=== PATIENT | male | born 1985 | race African-American/Black ===

== ENCOUNTER 2017-12-12 20:58 | Emergency (ER) | payer BC, SELFPAY ==
[2017-12-12 21:10] VITALS: BP 153/84; PULSE 65; RESP 16; TEMP 36.8; O2SAT 100; BMI 31.9
--- NOTE | 2017-12-12 21:22 | XR_ITS ---
EXAM: XR lumbar spine 2-3V HISTORY: ITS.REASON: BACK PAIN ORDERING PHYSICIAN: Harrison Moore MD PATIENT AGE: 32 years COMPARISON: 06/12/2015 FINDINGS: No fracture or dislocation evident. Mild lumbar spondylosis with degenerative disc disease at L3-L4, L4-5, and L5-S1 with endplate osteophytes posteriorly at those levels as well. There is mild anterolisthesis of L5 on S1 of 4 mm. The posterior osteophytes may be somewhat more prominent on today's exam. IMPRESSION: Degenerative disc disease from L3 to S1 with endplate osteophytes slightly more prominent
--- NOTE | 2017-12-12 22:18 | HMH.EDGENADL ---
ED Disposition Clinical Impression: Lumbar pain Disposition: Home, Self-Care Condition on Discharge: Good Instructions: DI for Low Back Pain Additional Instructions: use meds and see pcp for ubaldo reed Prescriptions: Cyclobenzaprine HCl [Flexeril 10mg tablet] 10 mg PO TID #20 tab predniSONE [Prednisone 20mg Tab] 20 mg PO DAILY #10 tab Referrals: Hanny Barcenas [Primary Care Provider] - - Critical Care Critical Care Time: No Attestation: On 12/12/17, the high probability of a clinically significant, sudden or life threatening deterioration of the following system(s) required my full and direct attention, intervention and personal management. The time I documented below is in addition to time spent performing reported procedures but includes the following listed in this critical care notation. Medical Decision Making - Medical Records Medical records reviewed: Yes: I reviewed the patient's medical records. Vital Signs: 12/12/17 21:10 Temperature 98.2 F Temperature Source Oral Pulse Rate [Right Brachial] 65 Respiratory Rate 16 Blood Pressure [Right Arm] 153/84 Blood Pressure Mean [Right Arm] 107 Blood Pressure Source [Right Arm] Automatic Cuff Blood Pressure Position [Right Arm] Supine 02 Sat by Pulse Oximetry 100 Oxygen Delivery Method Room Air - Lab Data Lab results reviewed: Yes: I reviewed the patient's lab results. Lab Results 12/12/17 22:30: WBC 6.3, RBC 5.19, Hgb 16.1, Hct 48.6, MCV 93.7, MCH 31.0, MCHC 33.0, RDW 13.3, Plt Count 282, MPV 8.6, Neut % (Auto) 38.0, Lymph % (Auto) 50.9 H, [place] % (Auto) 3.6, Eos % (Auto) 6.4, Baso % (Auto) 1.1, Neut # (Auto) 2.4, Lymph # (Auto) 3.2, [place] # (Auto) 0.2, Eos # (Auto) 0.4, Baso # (Auto) 0.1, ESR 14 Result diagrams: 12/12/17 22:30 Orders (Tests/Meds): ED MEDICATIONS Discontinued Medications Generic Name Dose Route Start Last Admin Trade Name Freq PRN Reason Stop Dose Admin Ketorolac Tromethamine 30 mg 12/12/17 21:25 12/12/17 21:32 Toradol 30mg/Ml Vial IM 12/12/17 21:26 30 mg ONCE ONE Administration ORDERS Category Date Time Status XR lumbar spine 2-3V Stat Exams 12/12/17 21:22 Taken C-Reactive Protein Stat Lab 12/12/17 22:30 Received CBC [Complete Blood Count Auto Diff] Stat Lab 12/12/17 22:30 Results CMP [Comprehensive Metabolic Panel] Stat Lab 12/12/17 22:30 Received ESR [Erythrocyte Sedimentation Rate] Stat Lab 12/12/17 22:30 Results - Radiology Data #1 Image(s): L-Spine Image Reviewed: Yes I reviewed the patient's radiology image Preliminary Findings: No Fracture Seen - Trino Inquiry Pt receiving controlled substance: No General Adult HPI - General Chief complaint: PAIN Stated complaint: back pain Time Seen by Provider: 12/12/17 22:18 Mode of Arrival: Ambulatory Source of Information: Patient, Spouse, Medical Record Limitations: No Limitations Description of Symptoms (Recalled from ER Triage Doc. by RN): LOWER BACK PAIN, PT STATES HE WOKE UP WITH BACK PAIN, WENT TO WORK AND IT GOT WORSE. PT STATES HE TOOK 500MG IBUPROFEN AROUND 16:15 - History of Present Illness HPI narrative: lower back pain w/o radiation today with no fever/rash or trauma and no sig back pain hx Onset (ago): day(s) Location: back Radiation: non-radiation Severity: moderate Quality: sharp Consistency: constant Exacerbating factors: movement Treatments prior to arrival: heat therapy - Related Data Previous Rx's Medication Instructions Recorded Cyclobenzaprine HCl [Flexeril 10mg 10 mg PO TID #20 tab 12/13/17 tablet] predniSONE [Prednisone 20mg 20 mg PO DAILY #10 tab 12/13/17 Tab] Allergies Allergy/AdvReac Type Severity Reaction Status Date / Time erythromycin base Allergy Mild NA-NAUSEA/V Verified 12/12/17 21:18 [ERYTHROMYCIN BASE] OMITING [facility] History I have reviewed the patient's past medical history: Yes - Social History Smoking Status: Current every da
--- NOTE | 2017-12-12 22:21 | ED_ITS ---
ED Disposition Clinical Impression: Lumbar pain Disposition: Home, Self-Care Condition on Discharge: Good Instructions: DI for Low Back Pain Additional Instructions: use meds and see pcp for ubaldo reed Prescriptions: Cyclobenzaprine HCl [Flexeril 10mg tablet] 10 mg PO TID #20 tab predniSONE [Prednisone 20mg Tab] 20 mg PO DAILY #10 tab Referrals: Hanny Barcenas [Primary Care Provider] - - Critical Care Critical Care Time: No Attestation: On 12/12/17, the high probability of a clinically significant, sudden or life threatening deterioration of the following system(s) required my full and direct attention, intervention and personal management. The time I documented below is in addition to time spent performing reported procedures but includes the following listed in this critical care notation. Medical Decision Making - Medical Records Medical records reviewed: Yes: I reviewed the patient's medical records. Vital Signs: 12/12/17 21:10 Temperature 98.2 F Temperature Source Oral Pulse Rate [Right Brachial] 65 Respiratory Rate 16 Blood Pressure [Right Arm] 153/84 Blood Pressure Mean [Right Arm] 107 Blood Pressure Source [Right Arm] Automatic Cuff Blood Pressure Position [Right Arm] Supine 02 Sat by Pulse Oximetry 100 Oxygen Delivery Method Room Air - Lab Data Lab results reviewed: Yes: I reviewed the patient's lab results. Lab Results 12/12/17 22:30: WBC 6.3, RBC 5.19, Hgb 16.1, Hct 48.6, MCV 93.7, MCH 31.0, MCHC 33.0, RDW 13.3, Plt Count 282, MPV 8.6, Neut % (Auto) 38.0, Lymph % (Auto) 50.9 H, [place] % (Auto) 3.6, Eos % (Auto) 6.4, Baso % (Auto) 1.1, Neut # (Auto) 2.4, Lymph # (Auto) 3.2, [place] # (Auto) 0.2, Eos # (Auto) 0.4, Baso # (Auto) 0.1, ESR 14 Result diagrams: 12/12/17 22:30 Orders (Tests/Meds): ED MEDICATIONS Discontinued Medications Generic Name Dose Route Start Last Admin Trade Name Freq PRN Reason Stop Dose Admin Ketorolac Tromethamine 30 mg 12/12/17 21:25 12/12/17 21:32 Toradol 30mg/Ml Vial IM 12/12/17 21:26 30 mg ONCE ONE Administration ORDERS Category Date Time Status XR lumbar spine 2-3V Stat Exams 12/12/17 21:22 Taken C-Reactive Protein Stat Lab 12/12/17 22:30 Received CBC [Complete Blood Count Auto Diff] Stat Lab 12/12/17 22:30 Results CMP [Comprehensive Metabolic Panel] Stat Lab 12/12/17 22:30 Received ESR [Erythrocyte Sedimentation Rate] Stat Lab 12/12/17 22:30 Results - Radiology Data #1 Image(s): L-Spine Image Reviewed: Yes I reviewed the patient's radiology image Preliminary Findings: No Fracture Seen - Trino Inquiry Pt receiving controlled substance: No General Adult HPI - General Chief complaint: PAIN Stated complaint: back pain Time Seen by Provider: 12/12/17 22:18 Mode of Arrival: Ambulatory Source of Information: Patient, Spouse, Medical Record Limitations: No Limitations Description of Symptoms (Recalled from ER Triage Doc. by RN): LOWER BACK PAIN, PT STATES HE WOKE UP WITH BACK PAIN, WENT TO WORK AND IT GOT WORSE. PT STATES HE TOOK 500MG IBUPROFEN AROUND 16:15 - History of Present Illness HPI narrative: lower back pain w/o radiation today with no fever/rash or trauma and no sig back pain hx Onset (ago): day(s) Location: back Radiation: non-radiation
[2017-12-12 22:54] LABS: Basophils # 0.1 K/mm3 (0-0.2); Basophils % 1.1 % (0.1-2.0); Eosinophils # 0.4 K/mm3 (0.0-0.4); Eosinophils % 6.4 % (0.1-12.0); Hematocrit 48.6 % (42.0-52.0); Hemoglobin 16.1 g/dL (14.1-18.0); Lymphocytes # 3.2 K/mm3 (0.7-4.5); Lymphocytes % 50.9 K/mm3 (10-50); Mean Corpuscular Volume 93.7 fl (80-94); Mean Platelet Volume 8.6 fl (7.4-10.4); Monocytes # 0.2 K/mm3 (0.1-1.0); Monocytes % 3.6 % (1.7-9.3); Neutrophils # 2.4 K/mm3 (1.8-7.8); Platelet Count 282 K/mm3 (142-424); Red Blood Count 5.19 M/mm3 (4.60-6.20); Red Cell Distribution Width 13.3 % (11.5-17.5); White Blood Count 6.3 K/mm3 (4.8-10.8)
[2017-12-12 22:58] LABS: MANUAL DIFFERENTIAL MANUAL DIFFERENTIAL (MANUAL DIFF)
[2017-12-12 23:01] LABS: Albumin Level 4.2 gm/dL (3.4-5.0); Blood Urea Nitrogen 14 mg/dL (7-18); Calcium 9.5 mg/dL (8.5-10.1); Carbon Dioxide 26 mmol/L (21.0-32.0); Chloride 103 mmol/L (98-107); Creatinine Clearance Estimated 118 mL/min (0-300); Creatinine,Serum 1.19 mg/dL (0.70-1.30); Estimated Glomerular Filt Rate 70 ml/min (>60); GFR (African American) 85 ML/MIN (>60); Glucose 98 mg/dL (74-106); Sodium 138 mmol/L (136-145)
[2017-12-12 23:58] LABS: Erythrocyte Sedimentation Rate 14 mm/hr (0-15)
[2017-12-12 23:59] LABS: C-Reactive Protein < 0.2 mg/L (0.0-0.9)
[2017-12-13 00:10] LABS: Alanine Aminotransferase 46 U/L (12-78); Alkaline Phosphatase 88 U/L (46-116); Aspartate Amino Transferase 30 U/L (15-37); Bilirubin,Total 0.2 mg/dL (0.2-1.0); Globulin 4.1 gm/dl (1.3-3.2); Total Protein,Serum 8.3 gm/dL (6.4-8.2)
[2017-12-13 00:11] LABS: Anisocytosis 1+; Eosinophils % 7 % (0-3); Lymphocytes % 59 % (10-50); Monocytes % 3 % (2-9); Neutrophils % 31 % (42-76); Platelet Estimate Normal; Total Cells Counted 100
[2017-12-13 00:14] VITALS: BP 144/94; PULSE 64; RESP 16; TEMP 36.8; O2SAT 100
== END 2017-12-13 00:16 | disposition home or self-care (01) ==
PROVIDERS: Emergency Provider Emergency Medicine; PCP Family Medicine Geriatric Medicine
DX: M54.5 Low back pain (principal); F17.210 Nicotine dependence, cigarettes, uncomplicated; Z88.1 Allergy status to other antibiotic agents
CPT/HCPCS: 72100; 80053; 85007; 85025; 85651; 86140; 96372; 99283

== ENCOUNTER → 2021-07-07 11:49 | Outpatient (CLI) | payer OTHER, SELFPAY | PROVIDERS: Visit Provider Nurse Practitioner | DX: Z20.822 Contact with and (suspected) exposure to COVID-19 (principal) | CPT/HCPCS: C9803; U0003; U0005 ==

== ENCOUNTER 2022-07-18 10:29 | Emergency (ER) | payer SELFPAY ==
[2022-07-18 10:41] VITALS: BP 117/73; PULSE 72; RESP 20; TEMP 36.6; O2SAT 100; BMI 27.3
--- NOTE | 2022-07-18 10:48 | XR_ITS ---
PROCEDURE INFORMATION: Exam: XR Right Hip Exam date and time: 07/18/2022 11:08 AM Age: 37 years old Clinical indication: Hip pain; Right hip TECHNIQUE: Imaging protocol: Radiologic exam of the Right hip. Views: 2 or 3 views hip with pelvis when performed. COMPARISON: ABDPELW CT abdomen pelvis w con 01/09/2019 12:05 AM FINDINGS: Bones/joints: No acute fracture or malalignment. Joint spaces are maintained. Soft tissues: Unremarkable. IMPRESSION: No acute fracture or malalignment.
[2022-07-18 10:50] VITALS: BP 150/109; PULSE 79; RESP 15; TEMP 36.6; O2SAT 100; BMI 27.3
--- NOTE | 2022-07-18 10:51 | EXP.UTC ---
Discharge Plan Disposition Patient Disposition: Home, Self-Care Condition: Good Prescriptions Prescriptions: New cyclobenzaprine 10 mg Tablet 10 mg PO BID PRN (Reason: Muscle Spasm) Qty: 20 0RF methylprednisolone 4 mg Tablets,Dose Pack 4 mg PO DIRECTED Qty: 21 0RF No Action amlodipine 10 MG tablet 10 mg PO DAILY cyclobenzaprine 10 MG tablet 5 mg PO TID PRN (Reason: spasm) Qty: 5 0RF naproxen 500 MG tablet 500 mg PO BID PRN (Reason: pain) Qty: 10 0RF Referrals Follow up/Referrals: Ben Sánchez MD [Staff Physician] - See instructions Radha Pulido APRN [Primary Care Provider] - See instructions Activity Restrictions/Add. Instructions Additional Instructions/Restrictions: Rest the extremity, Follow up with Dr. Sánchez (orthopedics). I put in a referral but you need to call his office and schedule an appointment. Follow up with your regular doctor. GO TO THE ER FOR ANY WORSENING SYMPTOMS Clinical Impressions Clinical Impression: Bursitis of hip, right, Acute pain of right hip Stand Alone Forms Stand Alone Forms: Work/School Release Discharge ED Provider: Osman Strange [facility] General Stated complaint: right hip pain, no known accident Mode of Arrival: Ambulatory Source of Information: Patient Limitations: No Limitations Time Seen by Provider: 07/18/22 10:51 Description of Symptoms (Recalled from Triage Doc. by RN): PT REPORTS RIGHT HIP PAIN X 4 DAYS. NO INJURY. HAS HAD THIS PAIN BEFORE, NOT BAD History of Present Illness Provider Complaint: He states that for the past 3 to 4 days he has had worsening right hip pain. He denies any injury. He has had episodes similar to this before, but they have been easy to get better with rest and ibuprofen. This time this has not worked as well. Related Data Home Medications Medication Instructions Recorded Confirmed amlodipine 10 mg tablet 10 mg PO DAILY Hypertension 10/22/19 10/22/19 Previous Rx's Medication Instructions Recorded cyclobenzaprine 10 mg tablet 5 mg PO TID PRN spasm #5 tabs 10/22/19 naproxen 500 mg tablet 500 mg PO BID PRN pain #10 tabs 10/22/19 cyclobenzaprine 10 mg tablet 10 mg PO BID PRN Muscle Spasm #20 10/09/22 tabs methylprednisolone 4 mg tablets in 4 mg PO DIRECTED #21 tabs 07/18/22 a dose pack Allergies Allergy/AdvReac Type Severity Reaction Status Date / Time erythromycin base Allergy Mild NA-NAUSEA/V Verified 07/18/22 10:52 [ERYTHROMYCIN BASE] OMITING PFSH PFSH Social History Smoking Status: Current every day smoker alcohol intake: never current occupational status: employed Travel in the last 8 weeks: None ROS Obtained: Yes All systems reviewed & no additional complaints except as documented Constitutional Constitutional: Denies chills and Denies fever(s) Integumentary/Breasts Skin/Breast: Denies redness, Denies rash and Denies wounds Neurologic Neurologic: Denies paresthesias Physical Exam General General appearance: alert and in no apparent distress Head Head exam: atraumatic, normocephalic and normal inspection Eye Eye exam: Present normal appearance, PERRL and EOMI ENT ENT exam: Present normal exam, normal oropharynx, mucous membranes moist, TM's normal bilaterally and normal external ear exam Neck Neck exam: Present normal inspection, full ROM and trachea midline; Absent meningismus or lymphadenopathy Chest Chest inspection: Present normal inspection and symmetric chest wall rise; Absent tenderness Respiratory Respiratory exam: Present normal lung sounds bilaterally; Absent respiratory distress Cardiovascular Cardiovascular exam: Present regular rate and normal rhythm; Absent JVD Abdominal Exam Abdominal exam: Present soft and normal bowel sounds; Absent distention, tenderness or guarding Extremities Exam Extremities exam: Present full ROM and normal capillary refill; Absent calf tenderness E
[2022-07-18 12:18] VITALS: BP 150/109; PULSE 79; RESP 15; TEMP 36.6
== END 2022-07-18 12:25 | disposition home or self-care (01) ==
PROVIDERS: Emergency Provider Nurse Practitioner Family; PCP Nurse Practitioner Family
DX: M70.71 Other bursitis of hip, right hip (principal); Z88.1 Allergy status to other antibiotic agents
CPT/HCPCS: 73502; 96372; 99212; G0463

== ENCOUNTER 2022-08-15 10:18 | Emergency (ER) | payer OTHER, SELFPAY ==
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
[2022-08-15 11:00] VITALS: BP 156/87; PULSE 78; RESP 20; TEMP 36.8; O2SAT 100; BMI 26.6
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
[2022-08-15 12:10] VITALS: BP 131/95; PULSE 65; RESP 20; TEMP 36.8; O2SAT 100
== END 2022-08-15 12:11 | disposition home or self-care (01) ==
PROVIDERS: Emergency Provider Student in an Organized Health Care Education/Training Program; PCP Nurse Practitioner Family
DX: R07.81 Pleurodynia (principal); R06.02 Shortness of breath; M25.551 Pain in right hip; M62.838 Other muscle spasm; G89.29 Other chronic pain; Z79.1 Long term (current) use of non-steroidal anti-inflammatories (NSAID); Z79.52 Long term (current) use of systemic steroids; Z88.0 Allergy status to penicillin; Z88.1 Allergy status to other antibiotic agents; Z88.3 Allergy status to other anti-infective agents; V49.40XA Driver injured in collision with unspecified motor vehicles in traffic accident, initial encounter
CPT/HCPCS: 71045; 73502; 99283

== ENCOUNTER 2023-08-11 08:15 | Emergency (ER) | payer BC, MEDICAID, SELFPAY ==
[2023-08-11 08:35] VITALS: BP 130/96; PULSE 89; RESP 20; TEMP 36.9; O2SAT 98; BMI 29.6
[2023-08-11 09:07] LABS: UTC Influenza A Antigen Negative (Negative); UTC Influenza B Antigen Negative (Negative)
--- NOTE | 2023-08-11 09:16 | EXP.UTC ---
Discharge Plan Disposition Patient Disposition: Home, Self-Care Condition: Good Prescriptions Prescriptions: New acetaminophen [Tylenol] 325 mg capsule 650 mg PO QID PRN (Reason: pain/fever) Qty: 30 0RF No Action hydrochlorothiazide 12.5 mg tablet 12.5 mg PO DAILY amlodipine 10 MG tablet 10 mg PO DAILY Referrals Follow up/Referrals: Caitlin Santiago APRN [Primary Care Provider] - See instructions Activity Restrictions/Add. Instructions Additional Instructions/Restrictions: Go straight to ER if headache worsens and worse headache of your life Follow up with your Family Doctor if no improvement or any worsening of symptoms *Monitor Temp, Over the counter Motrin or Tylenol as directed/as needed Tylenol every 4 hours and Motrin every 6 hours (as long as your family doctor has told you that you can take it) for fever or pain. and straight to ER if unable to lower temp less than 101.0 after medication given Make sure to stay hydrated and drink plenty of fluids *Sleep elevated *Humidifier/Vaporizer Follow up IMMEDIATELY for new or worsening symptoms or no Noticeable improvement over the next 48-72 hours. 911 for difficulty breathing or swallowing You were tested for today for Upper Respiratory Panel with COVID19 your test result should be back in the next 24 hours You may check your results on the [facility] Portal if you are positive for COVID or Flu you will need to Quarantine for 5 days per the CDC recommendations Clinical Impressions Clinical Impression: Generalized body aches Instructions Patient Instructions: DI for Viral Syndrome, DI for Headache Discharge ED Provider: Caitlin Santiago [facility] HPI General Stated complaint: BODY ACHES, FEVER, SEVERE HEADACHE Mode of Arrival: Ambulatory Source of Information: Patient Limitations: No Limitations Time Seen by Provider: 08/11/23 09:16 Description of Symptoms (Recalled from Triage Doc. by RN): PATIENT C/O PAIN IN HIPS, SEVERE HEADACHE, SWEATS AND CHILLS SINCE YESTERDAY HEENT Symptoms (Recalled from RN notes): Yes Resp Symptoms (Recalled from RN notes): No Skin Symptoms (Recalled from RN notes): No MS Symptoms (Recalled from RN notes): Yes Functional Status (Recalled from RN notes): WNL History of Present Illness Provider Complaint: Patient states that he awoke in the middle of the night feeling achy all over, worse in his hips and legs, chills, feeling hot like he has a fever, headache in the back of his head and feels like he may have flu or COVID Denies vision changes, Denies trouble speaking States that he took Tylenol this am and it did help some but this morning he was feeling restless States that his recently had surgery and has been taking care of her and his sick kids Related Data Home Medications Medication Instructions Recorded Confirmed amlodipine 10 mg tablet 10 mg PO DAILY Hypertension 10/22/19 08/11/23 hydrochlorothiazide 12.5 mg tablet 12.5 mg PO DAILY Hypertension 08/11/23 08/11/23 Previous Rx's Medication Instructions Recorded acetaminophen 325 mg capsule 650 mg PO QID PRN pain/fever #30 08/11/23 (Tylenol) caps Allergies Allergy/AdvReac Type Severity Reaction Status Date / Time erythromycin base Allergy Mild NA-NAUSEA/V Verified 07/18/22 10:52 [ERYTHROMYCIN BASE] OMITING Worker's Comp Is this a Worker's Comp case?: No [facility] Disclaimer: The information contained in this section may have been updated after the patient was seen, as this information can be updated by other users. Medical History (Updated 08/11/23 @ 09:27 by Caitlin Santiago APRN) Hyperlipidemia Hypertension Surgical History (Updated 08/11/23 @ 09:01 by Paris Dickson RN) History of cardiac catheterization Social History Smoking Status: Never smoker alcohol intake: never current occupational status: employed Travel in the last 8 weeks: None ROS Ob
[2023-08-11 09:21] VITALS: BP 130/96; PULSE 89; RESP 20; TEMP 36.9; O2SAT 98
== END 2023-08-11 09:35 | disposition home or self-care (01) ==
PROVIDERS: Emergency Provider Nurse Practitioner; PCP Nurse Practitioner
DX: U07.1 COVID-19 (principal); R51.9 Headache, unspecified; M79.18 Myalgia, other site; I10 Essential (primary) hypertension; E78.5 Hyperlipidemia, unspecified
CPT/HCPCS: 87635; 87804; 99212; 99214; G0463

== ENCOUNTER → 2023-09-08 09:04 | Outpatient (CLI) | payer MEDICAID, SELFPAY ==
--- NOTE | 2023-09-08 09:07 | CA_ITS ---
APPROVED REPORT EXAM: Comprehensive 2D, Doppler, and color-flow Echocardiogram Granulator: Myra Walsh RVT Ht: 5 ft 8 in Wt: 201lbs BSA: 2.05 BP: 147/79 mmHg Indications: HTN,ABN EKG,HLD,SMOKER,HX PERICARDITIS IN 2010 2D Dimensions LA Volume 41.90 mL LA Volume Index 20.44 mL/m2 (M/F) 16-34 M-Mode Dimensions RVDd 2.51 cm (0.9-2.6) LA Diam 3.74 cm (1.9-4.0) LVDd 4.36 cm (3.5-5.7) LVDs 3.17 cm (3.5-5.7) IVSd 1.14 cm (0.6-1.1) PWd 0.70 cm (0.6-1.1) EF (Teich) 53.40% FS 27.30% EDV (Teich) 85.80 mL TAPSE 2.46 (<1.7) ESV (Teich) 40.00 mL LV Diastology E Decel Time 233 (160-240 msec) E/A Ratio 0.8 Aortic Valve MARGOT Index 1.55 cm2/m2 AoV Peak Ruddy. 165.0 (50-130 cm/s) AO Peak GR. 10.80 mmHg AO Mean GR. 5.70 (<5 mmHg) AO VTI 26.3 (18-25 cm) MARGOT (VTI) 3.25 (2.5-4.5 cm2) Mitral Valve MV E Max Ruddy. 69.0 (40-130 cm/s) MV A Velocity 88.0 (40-130 cm/s) E/A Ratio 0.79 MV PHT 68.0 ms Pulmonary Valve PV Peak Velocity 95.0 (50-150 cm/s) Left Ventricle The left ventricle is normal size. The left ventricular systolic function is normal. The left ventricular ejection fraction is within the normal range. There is increased LV wall thickness. There is normal LV segmental wall motion. The left ventricular diastolic function is normal. LVEF is 55%. Right Ventricle The right ventricle is normal size. The right ventricular systolic function is normal. Atria The left atrium size is normal. The right atrium size is normal. There is no Doppler evidence of interatrial shunt. Aortic Valve The aortic valve opens well. There is no aortic valvular stenosis. No aortic regurgitation is present. Mitral Valve The mitral valve is normal in structure. No evidence of mitral valve stenosis. Trace mitral regurgitation. Tricuspid Valve The tricuspid valve leaflets are thin and pliable. Trace tricuspid regurgitation. There is insufficient TR jet to estimate RVSP. Pulmonic Valve The pulmonary valve is normal in structure. Trace pulmonic regurgitation. Great Vessels The aortic root is normal in size. The ascending aorta is normal in size. IVC is normal in size and collapses >50% with inspiration. Pericardium Trivial pericardial effusion. Conclusion Normal biventricular systolic function. No significant valvular stenosis or regurgitation. Trivial pericardial effusion. Electronically signed by : Yessica Molina MD 09/08/2023 23:16:21
== END ==
LOC: RT 09:05
PROVIDERS: PCP Nurse Practitioner Family; Visit Provider Nurse Practitioner Family
DX: R94.31 Abnormal electrocardiogram [ECG] [EKG] (principal)
CPT/HCPCS: 93306

== ENCOUNTER 2023-09-24 06:15 | Emergency (ER) | payer MEDICAID, SELFPAY ==
--- NOTE | 2023-09-24 06:27 | HMH.EDGENADL ---
Discharge Plan Disposition Patient Disposition: Home, Self-Care Prescriptions Prescriptions: New lidocaine 5 % adhesive patch,medicated 1 patch topical DAILY PRN (Reason: pain) Qty: 30 0RF Rx Instructions: leave on most painful area for up to 12 hrs methocarbamol 500 mg tablet 1,000 mg PO Q6H PRN (Reason: pain) Qty: 60 0RF No Action hydrochlorothiazide 12.5 mg tablet 12.5 mg PO DAILY acetaminophen [Tylenol] 325 mg capsule 650 mg PO QID PRN (Reason: pain/fever) Qty: 30 0RF amlodipine 10 MG tablet 10 mg PO DAILY Referrals Follow up/Referrals: Sabiha Hammond APRN [Primary Care Provider] - See instructions Clinical Impressions Clinical Impression: Pharyngitis Qualifiers: Pharyngitis/tonsillitis etiology: unspecified etiology Qualified Code(s): J02.9 - Acute pharyngitis, unspecified Sciatic pain Qualifiers: Laterality: unspecified laterality Qualified Code(s): M54.30 - Sciatica, unspecified side Instructions Patient Instructions: DI for Pharyngitis/Tonsillopharyngitis -- Adult, DI for Low Back Pain, DI for Back Pain With Sciatica Discharge ED Provider: Stanley Bell General Adult HPI General Chief complaint: Dental/Oral Stated complaint: sore throat, back pain Time Seen by Provider: 09/24/23 06:22 History of Present Illness HPI narrative: 38-year-old male, denies significant past medical history presents with throat pain for the last couple of days. Reports temperature up to 100 at home. Reports sick exposure with his children. Reports midline throat pain and pain with swallowing. Related Data Home Medications Medication Instructions Recorded Confirmed amlodipine 10 mg tablet 10 mg PO DAILY Hypertension 10/22/19 09/22/23 hydrochlorothiazide 12.5 mg tablet 12.5 mg PO DAILY Hypertension 08/11/23 09/22/23 Previous Rx's Medication Instructions Recorded acetaminophen 325 mg capsule 650 mg PO QID PRN pain/fever #30 08/11/23 (Tylenol) caps lidocaine 5 % topical patch 1 patch topical DAILY PRN pain #30 09/24/23 ea methocarbamol 500 mg tablet 1,000 mg PO Q6H PRN pain #60 tabs 09/24/23 Allergies Allergy/AdvReac Type Severity Reaction Status Date / Time erythromycin base Allergy Mild NA-NAUSEA/V Verified 09/22/23 13:21 [ERYTHROMYCIN BASE] OMITING PFSH PFSH Disclaimer: The information contained in this section may have been updated after the patient was seen, as this information can be updated by other users. Medical History Abnormal electrocardiogram [ECG] [EKG] Contusion of rib Generalized body aches Groin pain History of pericarditis Hyperlipidemia Hypertension Pericarditis 2010 Surgical History History of cardiac catheterization Social History Smoking Status: Current every day smoker alcohol intake: never substance use type: marijuana current occupational status: unemployed Travel in the last 8 weeks: None ROS Obtained: Yes All systems reviewed & no additional complaints except as documented Physical Exam General General appearance: alert and in no apparent distress Head Head exam: atraumatic and normocephalic Eye Eye exam: Present normal appearance, PERRL and EOMI ENT ENT exam: Present normal external ear exam and other (Posterior oropharynx erythematous, tonsils mildly enlarged and erythematous bilaterally, the base of the uvula is mildly erythematous and edematous as well.) Neck Neck exam: Present normal inspection and full ROM Chest Chest inspection: Present normal inspection and symmetric chest wall rise; Absent tenderness Respiratory Respiratory exam: Present normal lung sounds bilaterally; Absent respiratory distress Cardiovascular Cardiovascular exam: Present regular rate and normal rhythm Abdominal Exam Abdominal exam: Present soft; Absent distention, tendernes
[2023-09-24 06:29] VITALS: BP 135/92; PULSE 94; RESP 15; TEMP 36.7; O2SAT 100; BMI 29.6
--- NOTE | 2023-09-24 06:36 | PC.NURSE ---
Pt unable to tolerate Viscous lidocaine, spit into garbage can
[2023-09-24 06:46] VITALS: BP 124/37; PULSE 92; O2SAT 100
[2023-09-24 06:49] VITALS: BP 143/92; PULSE 91; O2SAT 100
[2023-09-24 06:58] LABS: Strep Scrn Group A (Rapid) Negative (Negative)
[2023-09-24 07:40] VITALS: BP 153/87; PULSE 95; RESP 19; TEMP 36.7; O2SAT 98
== END 2023-09-24 07:46 | disposition home or self-care (01) ==
PROVIDERS: Emergency Provider Emergency Medicine; PCP Nurse Practitioner Family
DX: J02.9 Acute pharyngitis, unspecified (principal); M54.40 Lumbago with sciatica, unspecified side; I10 Essential (primary) hypertension; E78.5 Hyperlipidemia, unspecified; F17.200 Nicotine dependence, unspecified, uncomplicated
CPT/HCPCS: 87430; 99283

== ENCOUNTER → 2023-10-13 13:03 | Outpatient (POV) | payer MEDICAID, SELFPAY ==
[2023-10-13 13:13] VITALS: BP 141/83; PULSE 87; RESP 18; O2SAT 98; BMI 29.6
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
== END | disposition home or self-care (01) ==
PROVIDERS: PCP Nurse Practitioner Family; Visit Provider Nurse Practitioner Family
DX: M25.551 Pain in right hip (principal)
CPT/HCPCS: 99202; G0463

== ENCOUNTER 2024-01-04 10:20 | Outpatient (CLI) | payer MEDICAID, SELFPAY ==
[2024-01-04 14:05] LABS: Basophils # 0.2 K/mm3 (0-0.2); Basophils % 2.3 % (0.1-2.0); Eosinophils # 0.3 K/mm3 (0.0-0.4); Eosinophils % 4.1 % (0.1-12.0); Hematocrit 50.2 % (42.0-52.0); Hemoglobin 16.1 g/dL (14.1-18.0); Lymphocytes # 3.5 K/mm3 (0.7-4.5); Lymphocytes % 55.2 % (10-50); Mean Corpuscular HGB Conc 32.1 g/dL (31.8-35.4); Mean Corpuscular Hemoglobin 30.9 pg (27.0-31.2); Mean Corpuscular Volume 96.3 fl (80-94); Mean Platelet Volume 10.1 fl (7.4-10.4); Monocytes # 0.4 K/mm3 (0.1-1.0); Monocytes % 6.5 % (1.7-9.3); Neutrophils # 2.1 K/mm3 (1.8-7.8); Platelet Count 374 K/mm3 (142-424); Red Blood Count 5.21 M/mm3 (4.60-6.20); Red Cell Distribution Width 14.2 % (11.5-17.5); White Blood Count 6.4 K/mm3 (4.8-10.8)
[2024-01-04 14:07] LABS: MANUAL DIFFERENTIAL MANUAL DIFFERENTIAL (MANUAL DIFF)
[2024-01-04 14:21] LABS: Chloride 104 mmol/L (98-107)
[2024-01-04 14:22] LABS: Potassium 4.7 mmoL/L (3.5-5.1); Sodium 139 mmol/L (136-145)
[2024-01-04 14:24] LABS: Alanine Aminotransferase 49 U/L (12-78); Albumin Level 4.6 g/dl (3.5-5.0); Albumin/Globulin Ratio 1.3 (1.1-1.8); Alkaline Phosphatase 96 U/L (38-126); Anion Gap 11.7 mEq/L (5-15); Aspartate Amino Transferase 63 U/L (17-59); Bilirubin,Total 0.6 mg/dl (0.2-1.3); Blood Urea Nitrogen 14 mg/dl (9-20); Carbon Dioxide 28 mmol/L (22.0-30.0); Estimated Glomerular Filt Rate 61 ml/min (>60); GFR (African American) 74 ML/MIN (>60); Globulin 3.5 g/dL (1.3-3.2); Total Protein,Serum 8.1 g/dl (6.3-8.2); Triglycerides 192 mg/dl (30-150); VLDL Cholesterol 38 mg/dL (0-40)
[2024-01-04 14:25] LABS: Calcium 10.1 mg/dl (8.4-10.2); Chol/HDL Ratio 6.4 (1-3.5); Cholesterol 250 mg/dl (140-200); Glucose 93 mg/dl (74-100); HDL Cholesterol 39 mg/dl (40-60)
[2024-01-04 14:39] LABS: Direct LDL Cholesterol 133.46 mg/dL (100-129)
[2024-01-04 14:42] LABS: 25-OH Vitamin D, Total 44.4 ng/mL (30-100)
[2024-01-04 14:57] LABS: Thyroid Stimulating Hormone 0.64 uIU/mL (0.465-4.68)
[2024-01-04 15:01] LABS: Ferritin 57.3 ng/ml (17.9-464)
[2024-01-04 15:22] LABS: Eosinophils % 2 % (0-3); Lymphocytes % 64 % (10-50); Monocytes % 4 % (2-9); Neutrophils % 30 % (42-76); Total Cells Counted 100
[2024-01-04 15:23] LABS: Platelet Estimate Normal; RBC Morphology Normal
== END 2024-01-04 23:59 ==
LOC: RT 10:20
PROVIDERS: PCP Nurse Practitioner Family; Visit Provider Nurse Practitioner Family
DX: R00.2 Palpitations (principal); R94.31 Abnormal electrocardiogram [ECG] [EKG]; E66.9 Obesity, unspecified; Z68.32 Body mass index [BMI] 32.0-32.9, adult; Z86.79 Personal history of other diseases of the circulatory system; I10 Essential (primary) hypertension; E78.5 Hyperlipidemia, unspecified; Z87.891 Personal history of nicotine dependence
CPT/HCPCS: 80053; 80061; 82306; 82728; 84443; 85007; 85025; 93225

== ENCOUNTER → 2024-02-15 08:24 | Outpatient (CLI) | payer MEDICAID, SELFPAY | LOC: SL 08:25 | PROVIDERS: PCP Nurse Practitioner Family; Visit Provider Nurse Practitioner Family | DX: G47.33 Obstructive sleep apnea (adult) (pediatric) (principal); R06.83 Snoring; I10 Essential (primary) hypertension | CPT/HCPCS: G0399 ==

== ENCOUNTER 2024-03-13 08:51 | Outpatient (CLI) | payer MEDICAID, SELFPAY ==
[2024-03-14 13:11] LABS: FSH 3.1 mIU/mL (1.5-12.4); LH 6.7 mIU/mL (1.7-8.6); Testosterone,Total 489 ng/dL (264-916)
== END 2024-03-13 23:59 | disposition home or self-care (01) ==
LOC: LAB 08:52
PROVIDERS: PCP Nurse Practitioner Family; Visit Provider Nurse Practitioner Family
DX: R53.83 Other fatigue (principal); R79.89 Other specified abnormal findings of blood chemistry
CPT/HCPCS: 36415; 82626; 83001; 83002; 84403

== ENCOUNTER 2024-06-26 10:47 | Outpatient (CLI) | payer MEDICAID, SELFPAY | END 2024-06-26 23:59 | disposition home or self-care (01) | LOC: LAB 10:47 | PROVIDERS: PCP Nurse Practitioner Family; Visit Provider Nurse Practitioner Family | DX: R19.7 Diarrhea, unspecified (principal) | CPT/HCPCS: 87045; 87493 ==

== ENCOUNTER 2024-07-27 10:14 | Outpatient (CLI) | payer MEDICAID, SELFPAY ==
--- NOTE | 2024-07-27 10:22 | XR_ITS ---
PROCEDURE INFORMATION: Exam: XR Lumbosacral Spine Exam date and time: 07/27/2024 10:24 AM Age: 39 years old Clinical indication: Low back pain; Additional info: Right sided lower back pain x 11 yrs TECHNIQUE: Imaging protocol: Radiologic exam of the lumbosacral spine. Views: 4 or 5 views. COMPARISON: CR SPLUMBLM XR lumbar spine 2-3V 12/12/2017 9:30 PM FINDINGS: Bones/joints: There is normal anatomic alignment of the lumbosacral spine. No acute fractures identified. There are mild multilevel chronic degenerative changes at L3-L4 and L4-L5. There are dorsal marginal osteophytes at these levels which potentially produce central canal and/or neural foraminal stenoses. If clinical concern persists consider MRI of the lumbosacral spine. Soft tissues: Unremarkable. IMPRESSION: Chronic degenerative changes of the lumbosacral spine, most severe at L3-L4 and L4-L5 as above. Consider MRI evaluation.
[2024-07-27 10:37] LABS: Basophils # 0.1 K/mm3 (0-0.2); Basophils % 1.8 % (0.1-2.0); Eosinophils # 0.3 K/mm3 (0.0-0.4); Eosinophils % 6.4 % (0.1-12.0); Hemoglobin 15.6 g/dL (14.1-18.0); Lymphocytes # 2.9 K/mm3 (0.7-4.5); Lymphocytes % 53.2 % (10-50); Mean Corpuscular HGB Conc 34.8 g/dL (31.8-35.4); Mean Corpuscular Hemoglobin 29.7 pg (27.0-31.2); Mean Corpuscular Volume 85.3 fl (80-94); Mean Platelet Volume 8.5 fl (7.4-10.4); Monocytes # 0.3 K/mm3 (0.1-1.0); Monocytes % 6.4 % (1.7-9.3); Neutrophils # 1.7 K/mm3 (1.8-7.8); Neutrophils % 32.2 % (37.0-80.0); Platelet Count 348 K/mm3 (142-424); Red Blood Count 5.27 M/mm3 (4.60-6.20); Red Cell Distribution Width 14.5 % (11.5-17.5); White Blood Count 5.4 K/mm3 (4.8-10.8)
[2024-07-27 10:42] LABS: MANUAL DIFFERENTIAL MANUAL DIFFERENTIAL (MANUAL DIFF)
[2024-07-27 11:05] LABS: Albumin Level 4.8 g/dl (3.5-5.0); Chloride 105 mmol/L (98-107); Sodium 140 mmol/L (136-145)
[2024-07-27 11:06] LABS: Potassium 4.2 mmoL/L (3.5-5.1)
[2024-07-27 11:08] LABS: Alanine Aminotransferase 39 U/L (12-78); Albumin/Globulin Ratio 1.3 (1.1-1.8); Alkaline Phosphatase 93 U/L (38-126); Anion Gap 15.2 mEq/L (5-15); Aspartate Amino Transferase 43 U/L (17-59); Bilirubin,Total 0.7 mg/dl (0.2-1.3); Blood Urea Nitrogen 11 mg/dl (9-20); Carbon Dioxide 24 mmol/L (22.0-30.0); Estimated Glomerular Filt Rate 74 ml/min (>60); GFR (African American) 89 ML/MIN (>60); Globulin 3.6 g/dL (1.3-3.2); Total Protein,Serum 8.4 g/dl (6.3-8.2)
[2024-07-27 11:09] LABS: Calcium 10.4 mg/dl (8.4-10.2); Glucose 89 mg/dl (74-100)
[2024-07-27 11:22] LABS: Microscopic, Urine URINE MICROSCOPIC (MICROSCOPIC)
[2024-07-27 12:18] LABS: Appearance,Urine CLEAR (Clear); Bilirubin,Urine Negative (Negative); Blood, Urine Negative (Negative); Color,Urine YELLOW (Yellow); Glucose,Urine (UA) Negative (Negative); Ketones,Urine Negative (Negative); Leukocyte Esterase,Urine Negative (Negative); Nitrate,Urine Negative (Negative); Protein,Urine Negative (Negative); Specific Gravity, Urine <= 1.005 (1.005-1.030); Urobilinogen,Urine 0.2 EU/dl (0.2)
[2024-07-27 12:28] LABS: Creatinine,Urine Random 73 mg/dL (Not Estab.)
[2024-07-27 12:29] LABS: Bacteria,Urine Trace /lpf; Squamous Epithelial Cell,Urine Occasional #/hpf (0-5)
[2024-07-27 12:33] LABS: Microalbumin < 6.000 mg/L (0-16.7)
[2024-07-27 13:45] LABS: Eosinophils % 4 % (0-3); Lymphocytes % 57 % (10-50); Monocytes % 3 % (2-9); Neutrophils % 36 % (42-76); Total Cells Counted 100
[2024-07-27 13:51] LABS: Platelet Estimate Normal
[2024-07-27 13:52] LABS: RBC Morphology Normal
== END 2024-07-27 23:59 | disposition home or self-care (01) ==
PROVIDERS: PCP Nurse Practitioner Family; Visit Provider Nurse Practitioner Family
DX: M51.369 Other intervertebral disc degeneration, lumbar region without mention of lumbar back pain or lower extremity pain (principal); M54.9 Dorsalgia, unspecified; R39.11 Hesitancy of micturition
CPT/HCPCS: 36415; 72110; 80053; 81001; 82043; 82570; 85007; 85025; 85027; 87086

== ENCOUNTER 2024-08-02 15:12 | Outpatient (CLI) | payer MEDICAID, SELFPAY ==
--- NOTE | 2024-08-02 15:12 | US_ITS ---
PROCEDURE INFORMATION: Exam: US Pelvis Limited, Bladder Exam date and time: 08/02/2024 3:17 PM Age: 39 years old Clinical indication: Other: Feels pressure/urge to pee while sitting; Additional info: Urinary hesitancy, right flank pain TECHNIQUE: Imaging protocol: Real-time pelvic ultrasound (non-obstetric) with image documentation. Exam focused on the urinary bladder. Total images: 324 COMPARISON: ABDPELW CT abdomen pelvis w con 01/09/2019 12:05 AM FINDINGS: Urinary bladder: Unremarkable bladder. Bladder pre-void volume (cc): 87.4 mL Bladder post-void residual volume (cc): 2.0 mL IMPRESSION: Bladder is unremarkable.
== END 2024-08-02 23:59 | disposition home or self-care (01) ==
LOC: RAD 15:12
PROVIDERS: PCP Nurse Practitioner Family; Visit Provider Nurse Practitioner Family
DX: R39.11 Hesitancy of micturition (principal); R10.9 Unspecified abdominal pain
CPT/HCPCS: 76857

== ENCOUNTER 2024-08-23 11:00 | Outpatient (RCR) | payer MEDICAID, SELFPAY ==
--- NOTE | 2024-08-06 11:57 | HMH.PTOPEV ---
PT Outpatient Evaluation Rehab PT Outpatient Evaluation Start: 08/06/24 09:49 Freq: Status: Active Protocol: Document 08/06/24 09:49 EDSONSAUL (Rec: 08/06/24 11:41 JOYCE [id number]) E-signed By Elba Vu, PT Outpatient Therapy Subjective History Subjective History Pt is a 39 y/o male who reports chronic LBP for years. Pt reports gradual worsening of pain in the past 2 years. 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 Pt reports central low back pain right>left. Pt reports right-sided pain sometimes refers into his hip. Pt denies more distal LE symptoms, saddle anesthesia or b/b dysfunction. Pt reports he is scheduled to see a urologist for possible enlarged prostate, states he had a bladder ultrasound without significant findings. Pt also reports he had a lumbar spine radiograph on with impression of Chronic degenerative changes of the lumbosacral spine, most severe at L3-L4 and L4-L5 as above. Consider MRI evaluation. Pt reports pain is aggravated by prolonged sitting, standing, bending, lifting and putting his shoes/ socks on. Pt reports pain improves with walking and OTC medication. Medical History: Hypertension, Hyperlipidemia Core strength: 4-/5 New diagnosis of cancer in past 12 No months? Chief Complaint Pain Symptom Type Throb,Sharp Symptoms Relieved By Rest/Positioning,OTC Meds Symptoms Aggravated By Standing,Bending/Stooping, Physical Activity,Twisting, Lifting Current Functional Limitations Lifting,Standing,Squatting, Walking Symptom Description Constant but Variable Level of pain today (0-10) 4 Pain scale - at its best (0-10) 3 Pain scale - at its worst (0-10) 9 Lumbopelvic Eval Assistive device Assistive Devices None / NA Gait Observation General Gait Pattern Observation No Deviations/Normal Palapation tenderness bilateral paraspinal tenderness Yes: R tightness noted compared to L buttock tenderness Yes: R gluteal mm Lumbar/Sacral Palpation Findings Tenderness Lumbar/Sacral Palpation Overall Comment 2/4 TTP Accessory Movement L-spine Vertebrae Accessory Movements Central P/A [place] that Elicit Symptoms L3 bilateral L4 bilateral Range of Motion Lumbar Spine Active Flexion Range of 70 Motion (degrees) Lumbar Spine Active Extension Range of 15 Motion (degrees) Left Lumbar Spine Lateral Flexion Active 20 Range of Motion (degrees) Right Lumbar Spine Lateral Flexion 20 Active Range of Motion (degrees) Manual Muscle Test Bilateral Knee Extension Strength Grade 5 Normal Knee Flexion Strength Grade 5 Normal Hip Flexion Strength Grade 5 Normal Hip Abduction Strength Grade 5 Normal Hip Adduction Strength Grade 5 Normal Hip Extension Strength Grade 4 Good Extensor Hallucis Longus Strength Grade 5 Normal Altered Sensation Comment equal and intact to light touch sensation Special Tests Hip Obdulio (RAQUEL) Test Negative Left,Negative Right Sciatic Nerve Tension Test Negative Left,Negative Right Unilateral Straight Leg Raise (Lasegue) Negative Left,Negative Right Test Lumbar Long [place] Distraction Test/Manual Positive Traction Oswestry Index Section 1 Pain Intensity The pain comes and goes and is moderate Section 2 Personal Care (Washing,Dresing) increase the pain, but I manage not to change my way of doing it Section 3 Lifting lifting heavy weights off the floor, but I can manage if they are Section 4 Walking I cannot walk more than one mile wihtout increasing pain Section 5 Sitting Pain prevents me from sitting for more than one hour Section 6 Standing I cannot stand more than 1 hour without increasing pain Section 7 Sleeping Because of my pain, my normal night's sleep is less than 6 hours sleep Section 8 Social Life Pain has no significant effect on my social life apart from limiting Section 9 Traveling I get extra pain while traveling, but it does not compel me to seek al Section 10 Changing Degreee of Pain My pain is neither getting better or worse Score and Risk Level Oswestry Sc 22 Oswestry Risk Level Moderate Disability Outpatient Therapy Assessment Impairments Problems/Impairmments Palpation Tenderness,Impaired Range of Motion,Impaired Strength,Impaired Standing, Impaired Sitting,Impaired Driving,Impaired Lifting, Impaired Squatting,Impaired Bending,Impaired Recreational Activities,Impaired Work Activities,Subjective C/O Pain ,Impaired Self Care/Self Management Prognosis Rehab Potential Good Clinical Impression Consistent with Diagnosis Yes Short Term Goals Number of Weeks 3 Improve Ability to Dress Self Yes: don shoes/socks with pain <4/10 Decrease Subjective C/O Pain Yes: Improve pain at worst to 7/10 to improve overall QOL Improve Self Care/Self Management Yes Patient to be Ind w/ HEP Yes Super[employer] Goals Number of Weeks 6 Increase Range of Motion Yes: Improve lumbar flexion AROM to at least 80-90 Increase Strength Yes: Improve core strength to 4-4+/5 grossly to assist with function Restore Ability to Lift Objects to Waist Yes: 20# with proper mechanics Level to assist with occupation Improve Oswestry Score Yes: Improve score to 17 or less to improve overall QOL Decrease Subjective C/O Pain Yes: Improve pain at worst to 5/10 to improve overall QOL Outpatient Therapy Plan of Care Treatment Plan May Include Therapeutic Exercise Including Home Yes Exercise Program Manual Therapy Techniques Yes Neuromuscular Re-education Yes Therapeutic Activities to Return to Yes Previous Functional/Work Level ADL/Self Care Education Yes Mechanical Traction Yes Dry Needling Yes Thermal Modalities Yes Electrical Stimulation Yes Ultrasound/Phonophoresis Yes Iontophoresis Yes Massage Yes Eval/Re-Eval Yes Aquatic Therapy Yes Frequency Times per week 2 Duration Number of Weeks 4-6 Addendums This patient is a candidate for social No or vocational rehab? Patient/Guardian verbally acknowledges Yes understanding of treatment program and consents to further treatment? Patient/Guardian verbally acknowledges Yes understanding of diagnosis, prognosis and goals for treatment? Eval Complexity PT Charges 39901 - Low Complexity Shoulder/Elbow Eval Shoulder Objective Measurements Elbow Objective Measurements PHYSICIAN CERTIFICATION: I certify the specified therapy services for Rashid Ram are required, authorized, and reviewed every 30 days.
== END 2024-08-23 23:59 | disposition home or self-care (01) ==
LOC: PT 11:00
PROVIDERS: PCP Nurse Practitioner Family; Visit Provider Nurse Practitioner Family
DX: M51.360 Other intervertebral disc degeneration, lumbar region with discogenic back pain only (principal)
CPT/HCPCS: 97110; 97163; 97530

== ENCOUNTER 2024-11-02 10:21 | Outpatient (CLI) | payer MEDICAID, SELFPAY ==
--- NOTE | 2024-11-02 10:29 | XR_ITS ---
FINAL REPORT CLINICAL HISTORY: right anterior knee pain, swelling FINDINGS: Right knee Four views were obtained. There is no fracture or dislocation. The joint spaces appear normal. No soft tissue abnormality is identified. There is an ossific protuberance anterior to the tibial tuberosity, may represent free ossific fragment measuring 2.2 cm, likely represents sequela of [place]-Schlatter's disease. IMPRESSION: Ossific protuberance anterior to the tibial tuberosity, likely represents sequela of [place]-Schlatter's disease. Reviewed, Interpreted and Dictated by Matt Harvey MD Transcribed by Corinne Coleman Authenticated and [facility]
== END 2024-11-02 23:59 | disposition home or self-care (01) ==
LOC: RAD 10:25
PROVIDERS: PCP Nurse Practitioner Family; Visit Provider Nurse Practitioner Family
DX: M25.561 Pain in right knee (principal)
CPT/HCPCS: 73564

== ENCOUNTER 2024-12-27 13:17 | Outpatient (CLI) | payer MEDICAID, SELFPAY ==
[2024-12-27 13:19] LABS: Microscopic, Urine URINE MICROSCOPIC (MICROSCOPIC)
[2024-12-27 13:33] LABS: Basophils # 0.1 K/mm3 (0-0.2); Basophils % 1.5 % (0.1-2.0); Eosinophils # 0.7 K/mm3 (0.0-0.4); Eosinophils % 11.7 % (0.1-12.0); Hematocrit 42.8 % (42.0-52.0); Hemoglobin 14.6 g/dL (14.1-18.0); Lymphocytes # 2.9 K/mm3 (0.7-4.5); Lymphocytes % 48.7 % (10-50); Mean Corpuscular HGB Conc 34.1 g/dL (31.8-35.4); Mean Corpuscular Hemoglobin 29.1 pg (27.0-31.2); Mean Corpuscular Volume 85.4 fl (80-94); Mean Platelet Volume 11.4 fl (7.4-10.4); Monocytes # 0.5 K/mm3 (0.1-1.0); Monocytes % 8.1 % (1.7-9.3); Neutrophils # 1.8 K/mm3 (1.8-7.8); Neutrophils % 29.8 % (37.0-80.0); Platelet Count 350 K/mm3 (142-424); Red Blood Count 5.01 M/mm3 (4.60-6.20); Red Cell Distribution Width 13.6 % (11.5-17.5); White Blood Count 5.9 K/mm3 (4.8-10.8)
[2024-12-27 14:17] LABS: Alanine Aminotransferase 56 U/L (12-78); Albumin Level 4.8 g/dl (3.5-5.0); Albumin/Globulin Ratio 1.7 (1.1-1.8); Alkaline Phosphatase 88 U/L (38-126); Amylase 74 U/L (30-110); Anion Gap 13.7 mEq/L (5-15); Aspartate Amino Transferase 56 U/L (17-59); Bilirubin,Total 0.7 mg/dl (0.2-1.3); Blood Urea Nitrogen 11 mg/dl (9-20); Calcium 9.6 mg/dl (8.4-10.2); Carbon Dioxide 24 mmol/L (22.0-30.0); Chloride 106 mmol/L (98-107); Estimated Glomerular Filt Rate 93 ml/min (>60); GFR (African American) 113 ML/MIN (>60); Globulin 2.9 g/dL (1.3-3.2); Glucose 102 mg/dl (74-100); Lipase 123 U/L (23-300); Potassium 4.7 mmoL/L (3.5-5.1); Sodium 139 mmol/L (136-145); Total Protein,Serum 7.7 g/dl (6.3-8.2)
[2024-12-28 01:19] LABS: Appearance,Urine CLEAR (Clear); Bilirubin,Urine Negative (Negative); Blood, Urine Negative (Negative); Color,Urine YELLOW (Yellow); Glucose,Urine (UA) Negative (Negative); Ketones,Urine Negative (Negative); Leukocyte Esterase,Urine Negative (Negative); Nitrate,Urine Negative (Negative); Protein,Urine Negative (Negative); Specific Gravity, Urine >= 1.030 (1.005-1.030); Urobilinogen,Urine 0.2 EU/dl (0.2)
[2024-12-28 02:02] LABS: Bacteria,Urine 1+ /lpf; Mucus,Urine 1+ /lpf; Squamous Epithelial Cell,Urine Occasional #/hpf (0-5)
== END 2024-12-27 23:59 | disposition home or self-care (01) ==
LOC: LAB.DROPOF 13:17
PROVIDERS: PCP Nurse Practitioner Family; Visit Provider Nurse Practitioner Family
DX: R10.30 Lower abdominal pain, unspecified (principal); R14.0 Abdominal distension (gaseous)
CPT/HCPCS: 80053; 81001; 82150; 83690; 85025; 87086

== ENCOUNTER 2024-12-28 08:18 | Outpatient (CLI) | payer MEDICAID, SELFPAY ==
--- NOTE | 2024-12-28 08:22 | US_ITS ---
FINAL REPORT CLINICAL HISTORY: LOWER ABD PAIN COMPARISON: None FINDINGS: ULTRASOUND ABDOMEN FINDINGS: The liver is unremarkable. Spleen is not adequately visualized for assessment. No abnormality of the gallbladder is seen. No biliary ductal dilatation is identified. Kidneys show no evidence of mass or obstruction. Pancreas is not well visualized. IVC and aorta are grossly unremarkable. There is no obvious fluid collection. IMPRESSION: Unremarkable abdominal ultrasound. Reviewed, Interpreted and Dictated by Rc Lechuga MD Transcribed by Portia Verde Authenticated and [facility]
== END 2024-12-28 23:59 | disposition home or self-care (01) ==
LOC: RAD 08:19
PROVIDERS: PCP Nurse Practitioner Family; Visit Provider Nurse Practitioner Family
DX: R10.30 Lower abdominal pain, unspecified (principal)
CPT/HCPCS: 76700

== ENCOUNTER 2025-01-02 10:00 | Outpatient (RCR) | payer MEDICAID, SELFPAY ==
--- NOTE | 2024-12-14 08:58 | HMH.PTOPEV ---
PT Outpatient Evaluation Rehab PT Outpatient Evaluation Start: 12/14/24 08:42 Freq: Status: Active Protocol: Document 12/14/24 08:42 XAVIER (Rec: 12/14/24 08:58 XAVIER [id number]) E-signed By Piter Constantino, PT Outpatient Therapy Subjective History Subjective History Pt is a 39 yom who is referred to [facility] outpatient rehab with complaints of R knee pain. The pt reports that he has dealt with knee pain for 25 years, but it worsened approximately 6-7 months ago, when he was playing football in the yard. He reports that he did not feel a pop or anything specifically, but it has been worse since then. He reports that his referring dr diagnosed him with meenakshi- schlatter's disease. Pt reports that he was prescribed Celebrex, which has helped his pain substantially. He reports that he has significant difficulties with squatting, lifting, running, stairs and recreational activities. Occupation: [employer] PMH: none New diagnosis of cancer in past 12 No months? Chief Complaint Pain,Stiff Symptom Type Sharp Symptoms Relieved By Prescription Meds Symptoms Aggravated By Bending/Stooping,Physical Activity Prior Functional Limitations None Current Functional Limitations Squatting,Recreation Activity, Stairs Symptom Description Intermittent,Activity Dependent Level of pain today (0-10) 5 Pain scale - at its best (0-10) 0 Pain scale - at its worst (0-10) 8 Hip/Knee Eval Gait Observation General Gait Pattern Observation No Deviations/Normal Assistive Device Assistive Devices None / NA Palpation Tenderness right Knee Palpation Finding Tenderness Knee Palpation Overall Comment 3/4 to patellar tendon MMT Hip Flexion Strength Grade 4- Good- Hip Abduction Strength Grade 3 Fair Hip Adduction Strength Grade 3+ Fair+ Hip Extension Strength Grade 3+ Fair+ Knee Extension Strength Grade 4 Good Knee Flexion Strength Grade 4 Good ROM Knee Extension Active Range of Motion ( 0 degrees) Knee Flexion Active Range of Motion ( 124 degrees) Special Tests Hip Bowstring (Cram) Test Negative Left,Negative Right Hip Carl's Test Negative Left,Negative Right Hip Renetta's Test Positive Right Hip Amrc Test Positive Right Hip Sitting Root Test Negative Left,Negative Right Hip Scouring (Quadrant) Test Negative Left,Negative Right Anthony Test Positive Hip Trendelenburg Test Negative Left,Negative Right Knee Apprehension Test Negative Left,Negative Right Knee Apley Compression Test Negative Left,Negative Right Knee Valgus Stress Test Negative Left,Negative Right Knee Varus Stress Test Negative Left,Negative Right Knee Rachel Test Negative Left,Negative Right Lower Extremity Functional Index Activities Today, do you or would you have any difficulty at all with: a.Any of your usual work, housework or A little bit of difficulty school activities b. Your usual hobbies, recreational or Moderate difficulty sporting activities c. Getting into or out of the bath No difficulty d. Walking between rooms No difficulty e. Putting on your shoes or socks A little bit of difficulty f. Squatting Quite a bit of difficulty g. Lifting an object, like a bag of A little bit of difficulty groceries from the floor h. Performing light activities around A little bit of difficulty your home i. Performing heavy activities around A little bit of difficulty your home j. Getting into or out of a car No difficulty k. Walking 2 blocks No difficulty l. Walking a mile No difficulty m. Going up or down 10 stairs (about 1 A little bit of difficulty flight of stairs) n. Standing for 1 hour No difficulty o. Sitting for 1 hour A little bit of difficulty p. Running on even ground Moderate difficulty q. Running on uneven ground Quite a bit of difficulty r. Making sharp turns while running fast Quite a bit of difficulty s. Hopping Quite a bit of difficulty t. Rolling over in bed No difficulty LEFI Score Lower Extremity Functional Index Score 57 Miscellaneous Dx PT Eval Objective Objective Eccentric Step Down Test: + Squat: Dynamic Knee Valgus Bilaterally with squat and pain Outpatient Therapy Assessment Impairments Problems/Impairmments Palpation Tenderness,Impaired Strength,Impaired Stair Climbing,Impaired Squatting, Subjective C/O Pain Prognosis Rehab Potential Good Comment w HEP Compliance Clinical Impression Consistent with Diagnosis Yes Consistent with Patellar Tendinitis Additional details: Pt presents with signs and symptoms consistent with patellar tendinitis. Pt presents with tightness into his quadriceps and hip flexors on the right side. He also presents with tenderness isolated to the patellar tendon. He would benefit from skilled PT to address his current impairments and to promote a return to his PLOF. Short Term Goals Number of Weeks 3 Decreased Palpation Tenderness Yes: 1-2/4 to TTP Assessment Above Increase Strength Yes: 4/5 to R hip and knees grossly Restore Ability to Lift Objects to Waist Yes: 20# without increasing Level pain Decrease Subjective C/O Pain Yes: 01/17 with above assessment Patient to be Ind w/ HEP Yes Clinical Team Lead Goals Number of Weeks 6 Decreased Palpation Tenderness Yes: 0-1/4 to TTP Assessment Above Increase Range of Motion Yes: Negative Anthony Test Increase Strength Yes: 02/11 to B hips/knees Restore Ability to Lift Objects to Waist Yes: 30# without increasing Level pain Improve Ability to Climb Stairs Yes: Flight of stairs with reciprocal stepping without increasing pain Improve Ability to Squat Yes: Squat with proper mechanics and without increasing pain Improve LEFI Score Yes: to 70 Decrease Subjective C/O Pain Yes: 11/19 with above assessment Patient to be Ind w/ Advanced HEP Yes Outpatient Therapy Plan of Care Treatment Plan May Include Therapeutic Exercise Including Home Yes Exercise Program Manual Therapy Techniques Yes Neuromuscular Re-education Yes Therapeutic Activities to Return to Yes Previous Functional/Work Level Gait Training Yes ADL/Self Care Education Yes Thermal Modalities Yes Electrical Stimulation Yes Ultrasound/Phonophoresis Yes Iontophoresis Yes Manual Lymphatic Drainage Yes Eval/Re-Eval Yes Frequency Times per week 2 Duration Number of Weeks 6 Addendums This patient is a candidate for social No or vocational rehab? Patient/Guardian verbally acknowledges Yes understanding of treatment program and consents to further treatment? Patient/Guardian verbally acknowledges Yes understanding of diagnosis, prognosis and goals for treatment? Eval Complexity PT Charges 99226 - Low Complexity Shoulder/Elbow Eval Shoulder Objective Measurements Elbow Objective Measurements PHYSICIAN CERTIFICATION: I certify the specified therapy services for Rashid Ram are required, authorized, and reviewed every 30 days.
== END 2025-01-02 23:59 | disposition home or self-care (01) ==
LOC: PT 10:00
PROVIDERS: PCP Nurse Practitioner Family; Visit Provider Physician Assistant
DX: M92.521 Juvenile osteochondrosis of tibia tubercle, right leg (principal)
CPT/HCPCS: 97110; 97163; 97530

== ENCOUNTER 2025-01-23 10:00 | Outpatient (RCR) | payer MEDICAID, SELFPAY ==
--- NOTE | 2025-01-08 18:07 | HMH.RHREAS ---
Rehab Reassessment Rehab OP Re-assessment Start: 01/08/25 09:57 Freq: Status: Active Protocol: Document 01/08/25 18:03 XAVIER (Rec: 01/08/25 18:07 XAVIER [id number]) E-signed By Piter Constantino PT Lower Extremity Functional Index Activities Today, do you or would you have any difficulty at all with: a.Any of your usual work, housework or No difficulty school activities b. Your usual hobbies, recreational or A little bit of difficulty sporting activities c. Getting into or out of the bath No difficulty d. Walking between rooms No difficulty e. Putting on your shoes or socks A little bit of difficulty f. Squatting A little bit of difficulty g. Lifting an object, like a bag of A little bit of difficulty groceries from the floor h. Performing light activities around No difficulty your home i. Performing heavy activities around A little bit of difficulty your home j. Getting into or out of a car No difficulty k. Walking 2 blocks No difficulty l. Walking a mile No difficulty m. Going up or down 10 stairs (about 1 A little bit of difficulty flight of stairs) n. Standing for 1 hour No difficulty o. Sitting for 1 hour A little bit of difficulty p. Running on even ground A little bit of difficulty q. Running on uneven ground A little bit of difficulty r. Making sharp turns while running fast Quite a bit of difficulty s. Hopping Quite a bit of difficulty t. Rolling over in bed No difficulty LEFI Score Lower Extremity Functional Index Score 65 Rehab Re-assessment Subjective Subjective Pt reports that he is 70% improved at this point. Reports improvement with his general mobility, walking, stretching, overall pain and ability to squat. Reports that he still has some tenderness at the front of his knee but it's much better. Describes his pain as a 3/10. Objective Objective Notes LEFS: 65 (57 on IE) MMT: 4+/5 Hip flexion, Hip ABD, hip ADD 4/5 Knee Extension 5/5 Knee Flexion Anthony Test + Able to lift 20# to waist level TTP: / to R patellar tendon Assessment Progress Assessment Progressing as Expected Assessment Notes Pt is progressing as expected. Continues to demonstrate some deficits in strength and mobility. However, pt is progressing well. Skilled PT remains indicated. Patient goals met ST/5 LT/9 Plan Plan Continue as per initial POC Frequency of Therapy 2 Duration of therapy 4 Time and Billing Re-Eval Time 10 Re-Eval Billing Units 1 Charge for PT reassessment? Yes PHYSICIAN CERTIFICATION: I certify the specified therapy services for Rashid Ram are required, authorized, and reviewed every 30 days.
== END 2025-01-23 23:59 | disposition home or self-care (01) ==
LOC: PT 10:00
PROVIDERS: PCP Nurse Practitioner Family; Visit Provider Physician Assistant
DX: M92.521 Juvenile osteochondrosis of tibia tubercle, right leg (principal)
CPT/HCPCS: 97110; 97164; 97530